=== PATIENT | female | born 1960 | race Caucasian/White ===

== ENCOUNTER 2022-05-03 18:10 | Emergency (ER) | payer OTHER ==
[~2022-05-03] VITALS: Ht 170.2 cm; Wt 81.6 kg
[~2022-05-03 18:10] MED LIST: ADVIL
[2022-05-03 20:12] LABS: BILIRUBIN,URINE NEGATIVE (NEGATIVE); BLOOD, URINE 1+ (NEGATIVE); CLARITY/URINE CLEAR (CLEAR); COLOR,URINE YELLOW (YELLOW); GLUCOSE,URINE NEGATIVE (NEGATIVE); KETONES,URINE NEGATIVE (NEGATIVE); LEUKOCYTE ESTERASE ,URINE NEGATIVE (NEGATIVE); NITRITE, URINE NEGATIVE (NEGATIVE); PROTEIN URINE NEGATIVE (NEGATIVE); UROBILINOGEN,URINE 0.2 (0.2-1.0)
[2022-05-03 20:20] LABS: BACTERIA,URINE FEW /HPF (None Seen); CALCIUM OXALATE CRYSTALS,UR 0-10 /HPF (None Seen); MUCUS,URINE None Seen /LPF (None Seen); RBC,URINE NONE SEEN /HPF (0-3); WBC,URINE 0-3 /HPF (0-3)
[2022-05-04] MEDS ORDERED: AUG875 PO (07:18)
== END 2022-05-03 20:59 | disposition left against medical advice (07) ==
LOC: SED 18:10
DX: R10.9 Unspecified abdominal pain (principal); Z53.21 Procedure and treatment not carried out due to patient leaving prior to being seen by health care provider
CPT/HCPCS: 81000; 99281

== ENCOUNTER 2022-05-04 04:58 | Emergency (ER) | payer OTHER ==
[~2022-05-04] VITALS: Ht 170.2 cm; Wt 95.3 kg
[2022-05-04 05:28] VITALS: BP_SYST 142
[2022-05-04 06:05] LABS: BASOPHILS # (AUTO) 0.1 K/uL (0.0-0.2); BASOPHILS % (AUTO) 1.1 % (0.0-2.0); EOSINOPHILS # (AUTO) 0.1 K/uL (0.0-0.4); EOSINOPHILS % (AUTO) 1.6 % (0.0-4.0); HEMATOCRIT 37.5 % (36-48); HEMOGLOBIN 12.6 g/dL (12.0-16.0); LYMPHOCYTES # (AUTO) 1.9 K/uL (1.0-5.5); LYMPHOCYTES % (AUTO) 28.5 % (20.5-51.5); MEAN CORPUSCULAR HEMOGLOBIN 30 pg (27-31); MEAN CORPUSCULAR HGB CONC 34 % (32-36); MEAN CORPUSCULAR VOLUME 91 fL (79.0-98.0); MONOCYTES # (AUTO) 0.6 K/uL (0.0-1.0); MONOCYTES % (AUTO) 9.1 % (1.7-9.3); NEUTROPHILS % (AUTO) 59.7 % (40.0-70.0); PLATELET COUNT (AUTO) 454 K/uL (130-430); RED BLOOD CELL COUNT(AUTO) 4.14 MIL/uL (4.2-6.2); RED CELL DISTRIBUTION WIDTH 13.1 % (9.0-15.0); WHITE BLOOD COUNT (AUTO) 6.8 K/uL (4.8-10.8)
[2022-05-04 06:30] LABS: CALCIUM 8.6 mg/dL (8.4-11.0); CREATININE 0.86 mg/dL (0.55-1.30)
[2022-05-04 06:37] LABS: ALBUMIN 2.8 g/dL (3.4-4.8); TOTAL BILIRUBIN 0.4 mg/dL (0.0-1.0)
[2022-05-04] MEDS ORDERED: POTASSIUM CHLORIDE 20 MEQ TAB.PRT.SR PO ONE (06:45)
[2022-05-04 07:17] VITALS: BP_SYST 152
[2022-05-04] MEDS ORDERED: AUG875 PO (07:18)
== END 2022-05-04 07:17 | disposition left against medical advice (07) ==
LOC: SED 04:58
DX: K81.9 Cholecystitis, unspecified (principal); R10.9 Unspecified abdominal pain; Z79.899 Other long term (current) drug therapy
CPT/HCPCS: 36415; 76705; 80053; 83690; 85025; 99284